=== PATIENT | female | born 1930 | race Caucasian/White ===

== ENCOUNTER 2021-07-10 17:54 | Inpatient (IN) | payer OTHER ==
[2021-07-10 18:43] VITALS: BMI 15.0
[2021-07-10 19:16] LABS: HEMATOCRIT 39.9 % (32.4-45.2); HEMOGLOBIN 13.4 GM/dL (10.7-15.3); LYMPH % 26.6 % (8-40); MCH 30.9 pg (25.7-33.7); MCHC 33.5 g/dl (32.0-36.0); MEAN CELL VOLUME 92.5 fl (80-96); MEAN PLT VOLUME 8.5 fl (7.5-11.1); MONO % 6.3 % (3.8-10.2); NEUT % 65.1 % (42.8-82.8); PLATELET COUNT 240 10^3/uL (134-434); RBC 4.32 M/mm3 (3.60-5.2); RDW 14.4 % (11.6-15.6); WHITE BLOOD COUNT 4.5 K/mm3 (4.0-10.0)
[2021-07-10 20:19] LABS: CHLORIDE 105 mmol/L (98-107); SODIUM 142 mmol/L (136-145)
[2021-07-10 20:22] LABS: CALCIUM 9.4 mg/dL (8.5-10.1)
[2021-07-10 20:23] LABS: ALBUMIN 3.6 g/dl (3.4-5.0); ANION GAP 5 MMOL/L (8-16); CO2 31 mmol/L (21-32); GLUCOSE,RANDOM 143 mg/dL (74-106)
[2021-07-10 20:26] LABS: SGOT/AST 24 U/L (15-37); SGPT/ALT 13 U/L (13-61)
[2021-07-10 20:28] LABS: BILIRUBIN,TOTAL 0.5 mg/dL (0.2-1); BLOOD UREA NITROGEN 32.3 mg/dL (7-18)
[2021-07-10 20:29] LABS: ALK PHOS 60 U/L (45-117)
[2021-07-10] MEDS ORDERED: SODIUM CHLORIDE 500 ML IV STA (20:45)
[2021-07-11] MEDS ORDERED: ACETAMINOPHEN 1000 MG/100 ML BAG IVPB ONE (00:51)
[2021-07-11] MEDS ORDERED: ACETAMINOPHEN INJECTION 100 ML IVPB ONE (00:55)
[2021-07-11] MEDS ORDERED: SODIUM CHLORIDE 1,000 ML IV SCH (02:45)
[2021-07-11 09:14] LABS: BASO % 0.4 % (0-2.0); EOS % 0.2 % (0-4.5); HEMATOCRIT 40.5 % (32.4-45.2); LYMPH % 10.9 % (8-40); MCH 30.1 pg (25.7-33.7); MCHC 32.1 g/dl (32.0-36.0); MEAN CELL VOLUME 93.6 fl (80-96); MEAN PLT VOLUME 8.7 fl (7.5-11.1); MONO % 4.3 % (3.8-10.2); NEUT % 84.2 % (42.8-82.8); PLATELET COUNT 236 10^3/uL (134-434); RBC 4.33 M/mm3 (3.60-5.2); RDW 14.6 % (11.6-15.6); WHITE BLOOD COUNT 8.4 K/mm3 (4.0-10.0)
[2021-07-11 09:48] LABS: ALBUMIN 3.5 g/dl (3.4-5.0)
[2021-07-11 09:49] LABS: CALCIUM 8.7 mg/dL (8.5-10.1)
[2021-07-11 09:52] LABS: BLOOD UREA NITROGEN 26.3 mg/dL (7-18)
[2021-07-11 09:53] LABS: TOT PROT 6.5 g/dl (6.4-8.2)
[2021-07-11 09:54] LABS: CREATININE 0.8 mg/dL (0.55-1.3)
[2021-07-11 09:56] LABS: BILIRUBIN,TOTAL 1.2 mg/dL (0.2-1)
[2021-07-11] MEDS: ACETAMINOPHEN 1000 MG/100 ML BAG IVPB PRN (12:10)
[2021-07-11] MEDS: AMPICILLIN NA/SULBACTAM NA 3 GM in SODIUM CHLORIDE 100 ML IVPB SCH ×2 (13:04→17:19)
[2021-07-11] MEDS ORDERED: AZITHROMYCIN IVPB 500 MG/250 ML BAG IVPB ONE (13:34)
[2021-07-11] MEDS: AZITHROMYCIN IVPB 500 MG/250 ML BAG IVPB SCH (13:55)
[2021-07-11] MEDS ORDERED: AMPICILLIN NA/SULBACTAM NA 3 GM VIAL ONE (16:34)
[2021-07-11] MEDS ORDERED: SODIUM CHLORIDE 100 ML IVPB ONE (16:34)
[2021-07-11] MEDS: HEPARIN NA (PORCINE) 5,000 UNITS/ML 1ML VIAL SQ SCH (21:23)
[2021-07-12] MEDS: AMPICILLIN NA/SULBACTAM NA 3 GM in SODIUM CHLORIDE 100 ML IVPB SCH ×3 (01:22→18:46)
[2021-07-12] MEDS: ACETAMINOPHEN 1000 MG/100 ML BAG IVPB PRN (02:28)
[2021-07-12] MEDS ORDERED: methylPREDNISolone NA SUCC 125 MG/2 ML VIAL ONE ×2 (07:01→07:03)
[2021-07-12] MEDS ORDERED: methylPREDNISolone NA SUCC 125 MG/2 ML VIAL IVPUSH ONE (07:45)
[2021-07-12] MEDS ORDERED: ALBUTEROL SO4 0.083% IH SOL 2.5 MG/3 ML VIAL.NEB. NEB PRN (07:49)
[2021-07-12 08:06] LABS: BASO % 0.2 % (0-2.0); HEMATOCRIT 37.1 % (32.4-45.2); LYMPH % 6.7 % (8-40); MCH 30.2 pg (25.7-33.7); MCHC 32.4 g/dl (32.0-36.0); MEAN CELL VOLUME 93.4 fl (80-96); MEAN PLT VOLUME 9.5 fl (7.5-11.1); MONO % 3.1 % (3.8-10.2); PLATELET COUNT 230 10^3/uL (134-434); RBC 3.98 M/mm3 (3.60-5.2); RDW 14.3 % (11.6-15.6); WHITE BLOOD COUNT 14.5 K/mm3 (4.0-10.0)
[2021-07-12 08:25] LABS: CALCIUM 8.7 mg/dL (8.5-10.1)
[2021-07-12 08:26] LABS: ALBUMIN 3.2 g/dl (3.4-5.0); BLOOD UREA NITROGEN 19.3 mg/dL (7-18)
[2021-07-12 08:29] LABS: CREATININE 0.7 mg/dL (0.55-1.3)
[2021-07-12 08:30] LABS: BILIRUBIN,TOTAL 0.7 mg/dL (0.2-1)
[2021-07-12 08:31] LABS: TOT PROT 5.8 g/dl (6.4-8.2)
[2021-07-12] MEDS: HEPARIN NA (PORCINE) 5,000 UNITS/ML 1ML VIAL SQ SCH ×2 (10:27→22:10)
[2021-07-12] MEDS: PANTOPRAZOLE SODIUM 40 MG VIAL IVPUSH SCH (10:27)
[2021-07-12] MEDS: AZITHROMYCIN IVPB 500 MG/250 ML BAG IVPB SCH (10:28)
[2021-07-12] MEDS: methylPREDNISolone NA SUCC 40 MG/1 ML VIAL IVPUSH SCH ×2 (10:28→18:46)
[2021-07-12] MEDS: SILVER SULFADIAZINE 1% TOP CREAM 50 GM JAR TP SCH (10:37)
[2021-07-12] MEDS ORDERED: AMPICILLIN NA/SULBACTAM NA 3 GM VIAL ONE (11:17)
[2021-07-12] MEDS ORDERED: SODIUM CHLORIDE 100 ML IVPB ONE (11:18)
[2021-07-12] MEDS: AMINO ACIDS 4.25%/D5W 1,000 ML IV SCH (16:37)
[2021-07-13] MEDS ORDERED: AMPICILLIN NA/SULBACTAM NA 3 GM VIAL ONE ×2 (01:32→09:59)
[2021-07-13] MEDS ORDERED: SODIUM CHLORIDE 100 ML IVPB ONE ×2 (01:32→09:59)
[2021-07-13] MEDS: methylPREDNISolone NA SUCC 40 MG/1 ML VIAL IVPUSH SCH ×3 (01:45→21:50)
[2021-07-13] MEDS: AMPICILLIN NA/SULBACTAM NA 3 GM in SODIUM CHLORIDE 100 ML IVPB SCH ×3 (01:45→19:58)
[2021-07-13 07:58] LABS: HEMATOCRIT 38.5 % (32.4-45.2); HEMOGLOBIN 12.7 GM/dL (10.7-15.3); MCH 30.6 pg (25.7-33.7); MCHC 33.1 g/dl (32.0-36.0); MEAN CELL VOLUME 92.6 fl (80-96); MEAN PLT VOLUME 9.3 fl (7.5-11.1); PLATELET COUNT 204 10^3/uL (134-434); RBC 4.15 M/mm3 (3.60-5.2); RDW 14.7 % (11.6-15.6); WHITE BLOOD COUNT 17.1 K/mm3 (4.0-10.0)
[2021-07-13 08:04] LABS: CALCIUM 8.4 mg/dL (8.5-10.1)
[2021-07-13 08:05] LABS: ALBUMIN 2.7 g/dl (3.4-5.0); BLOOD UREA NITROGEN 30.5 mg/dL (7-18)
[2021-07-13 08:08] LABS: CREATININE 0.7 mg/dL (0.55-1.3)
[2021-07-13 08:09] LABS: BILIRUBIN,TOTAL 0.6 mg/dL (0.2-1); TOT PROT 5.9 g/dl (6.4-8.2)
[2021-07-13 09:54] LABS: ANISOCYTOSIS 0; HELMET CELLS 0; HOWELL-JOLLY BODIES 0; MACROCYTOSIS 0; OVALOCYTE 0; PLATELET ESTIMATE NORMAL; ROULEAU 0; SICKELED CELLS 0; TARGET CELLS 0; TEAR DROP CELLS 0; TOXIC GRANULATION 0
[2021-07-13] MEDS: PANTOPRAZOLE SODIUM 40 MG VIAL IVPUSH SCH (10:02)
[2021-07-13] MEDS: HEPARIN NA (PORCINE) 5,000 UNITS/ML 1ML VIAL SQ SCH ×2 (10:02→21:50)
[2021-07-13] MEDS: SILVER SULFADIAZINE 1% TOP CREAM 50 GM JAR TP SCH (10:04)
[2021-07-13] MEDS: AMINO ACIDS 4.25%/D5W 1,000 ML IV SCH (10:10)
[2021-07-13] MEDS: MINERAL OIL ENEMA 133 ML ENEMA RC SCH (10:10)
[2021-07-14] MEDS ORDERED: AMPICILLIN NA/SULBACTAM NA 3 GM VIAL ONE (00:49)
[2021-07-14] MEDS ORDERED: SODIUM CHLORIDE 100 ML IVPB ONE (00:49)
[2021-07-14] MEDS: AMPICILLIN NA/SULBACTAM NA 3 GM in SODIUM CHLORIDE 100 ML IVPB SCH (01:57)
[2021-07-14] MEDS: ACETAMINOPHEN 1000 MG/100 ML BAG IVPB PRN ×2 (03:10→22:21)
[2021-07-14] MEDS ORDERED: PIPERACILLIN/TAZOBACTAM 3.375 GM VIAL IVPB ONE ×3 (05:24→16:44)
[2021-07-14] MEDS ORDERED: DEXTROSE 5%-WATER - 50 ML IVPB ONE ×3 (05:24→16:44)
[2021-07-14] MEDS: PIPERACILLIN/TAZOB 3.375 GM 3.375 GM in DEXTROSE 5%-WATER - 50 ML IVPB SCH ×3 (06:00→17:00)
[2021-07-14 07:48] LABS: HEMOGLOBIN 12.4 GM/dL (10.7-15.3); MCH 31.2 pg (25.7-33.7); MCHC 33.5 g/dl (32.0-36.0); MEAN CELL VOLUME 93.2 fl (80-96); MEAN PLT VOLUME 9.4 fl (7.5-11.1); PLATELET COUNT 179 10^3/uL (134-434); RBC 3.97 M/mm3 (3.60-5.2); RDW 14.9 % (11.6-15.6); WHITE BLOOD COUNT 16.1 K/mm3 (4.0-10.0)
[2021-07-14 08:25] LABS: CALCIUM 8.5 mg/dL (8.5-10.1)
[2021-07-14 08:26] LABS: ALBUMIN 2.7 g/dl (3.4-5.0)
[2021-07-14 08:29] LABS: CREATININE 0.8 mg/dL (0.55-1.3)
[2021-07-14 08:30] LABS: BILIRUBIN,TOTAL 0.7 mg/dL (0.2-1); TOT PROT 5.8 g/dl (6.4-8.2)
[2021-07-14] MEDS: AMINO ACIDS 4.25%/D5W 1,000 ML IV SCH (09:25)
[2021-07-14] MEDS: MINERAL OIL ENEMA 133 ML ENEMA RC SCH (09:26)
[2021-07-14] MEDS: methylPREDNISolone NA SUCC 40 MG/1 ML VIAL IVPUSH SCH ×2 (09:27→22:20)
[2021-07-14] MEDS: PANTOPRAZOLE SODIUM 40 MG VIAL IVPUSH SCH (09:27)
[2021-07-14] MEDS: SILVER SULFADIAZINE 1% TOP CREAM 50 GM JAR TP SCH (09:27)
[2021-07-14] MEDS: HEPARIN NA (PORCINE) 5,000 UNITS/ML 1ML VIAL SQ SCH ×2 (09:28→22:20)
[2021-07-14 12:34] LABS: ANISOCYTOSIS 0; MACROCYTOSIS 0
[2021-07-15] MEDS ORDERED: PIPERACILLIN/TAZOBACTAM 3.375 GM VIAL IVPB ONE ×3 (02:09→17:30)
[2021-07-15] MEDS ORDERED: DEXTROSE 5%-WATER - 50 ML IVPB ONE ×3 (02:09→17:31)
[2021-07-15] MEDS: PIPERACILLIN/TAZOB 3.375 GM 3.375 GM in DEXTROSE 5%-WATER - 50 ML IVPB SCH ×3 (02:29→17:32)
[2021-07-15] MEDS: AMINO ACIDS 4.25%/D5W 1,000 ML IV SCH (07:57)
[2021-07-15] MEDS: PANTOPRAZOLE SODIUM 40 MG VIAL IVPUSH SCH (11:15)
[2021-07-15] MEDS: methylPREDNISolone NA SUCC 40 MG/1 ML VIAL IVPUSH SCH ×2 (11:15→21:40)
[2021-07-15] MEDS: HEPARIN NA (PORCINE) 5,000 UNITS/ML 1ML VIAL SQ SCH ×2 (11:15→21:40)
[2021-07-15] MEDS: SILVER SULFADIAZINE 1% TOP CREAM 50 GM JAR TP SCH (11:15)
[2021-07-15] MEDS: ACETAMINOPHEN 1000 MG/100 ML BAG IVPB PRN (11:16)
[2021-07-15] MEDS: MINERAL OIL ENEMA 133 ML ENEMA RC SCH (11:21)
[2021-07-16] MEDS ORDERED: DEXTROSE 5%-WATER - 50 ML IVPB ONE ×3 (01:21→16:29)
[2021-07-16] MEDS ORDERED: PIPERACILLIN/TAZOBACTAM 3.375 GM VIAL IVPB ONE ×3 (01:21→16:29)
[2021-07-16] MEDS: PIPERACILLIN/TAZOB 3.375 GM 3.375 GM in DEXTROSE 5%-WATER - 50 ML IVPB SCH ×3 (02:01→17:13)
[2021-07-16] MEDS: AMINO ACIDS 4.25%/D5W 1,000 ML IV SCH (07:37)
[2021-07-16] MEDS ORDERED: ALBUTEROL SO4 HFA INHALER IH PRN (09:27)
[2021-07-16] MEDS: PANTOPRAZOLE SODIUM 40 MG VIAL IVPUSH SCH (09:54)
[2021-07-16] MEDS: methylPREDNISolone NA SUCC 40 MG/1 ML VIAL IVPUSH SCH ×2 (09:55→21:22)
[2021-07-16] MEDS: HEPARIN NA (PORCINE) 5,000 UNITS/ML 1ML VIAL SQ SCH ×2 (09:56→21:22)
[2021-07-16] MEDS: SILVER SULFADIAZINE 1% TOP CREAM 50 GM JAR TP SCH (09:58)
[2021-07-16] MEDS: MINERAL OIL ENEMA 133 ML ENEMA RC SCH (09:58)
[2021-07-16] MEDS: ACETAMINOPHEN 1000 MG/100 ML BAG IVPB PRN (10:52)
[2021-07-17] MEDS ORDERED: PIPERACILLIN/TAZOBACTAM 3.375 GM VIAL IVPB ONE ×3 (01:17→16:25)
[2021-07-17] MEDS ORDERED: DEXTROSE 5%-WATER - 50 ML IVPB ONE ×3 (01:18→16:26)
[2021-07-17] MEDS: PIPERACILLIN/TAZOB 3.375 GM 3.375 GM in DEXTROSE 5%-WATER - 50 ML IVPB SCH ×3 (01:19→17:32)
[2021-07-17] MEDS: AMINO ACIDS 4.25%/D5W 1,000 ML IV SCH (09:06)
[2021-07-17] MEDS: HEPARIN NA (PORCINE) 5,000 UNITS/ML 1ML VIAL SQ SCH ×2 (10:17→21:11)
[2021-07-17] MEDS: methylPREDNISolone NA SUCC 40 MG/1 ML VIAL IVPUSH SCH ×2 (10:18→21:11)
[2021-07-17] MEDS: PANTOPRAZOLE SODIUM 40 MG VIAL IVPUSH SCH (10:18)
[2021-07-17] MEDS: SILVER SULFADIAZINE 1% TOP CREAM 50 GM JAR TP SCH (10:31)
[2021-07-17] MEDS ORDERED: MINERAL OIL ENEMA 133 ML ENEMA RC PRN (12:04)
[2021-07-17 12:23] LABS: HEMATOCRIT 38.8 % (32.4-45.2); HEMOGLOBIN 13.2 GM/dL (10.7-15.3); MCH 30.7 pg (25.7-33.7); MCHC 34.1 g/dl (32.0-36.0); MEAN CELL VOLUME 90.1 fl (80-96); MEAN PLT VOLUME 8.9 fl (7.5-11.1); PLATELET COUNT 160 10^3/uL (134-434); RBC 4.31 M/mm3 (3.60-5.2); RDW 14.1 % (11.6-15.6); WHITE BLOOD COUNT 14.2 K/mm3 (4.0-10.0)
[2021-07-17 12:38] LABS: CALCIUM 8.5 mg/dL (8.5-10.1)
[2021-07-17 12:39] LABS: ALBUMIN 2.5 g/dl (3.4-5.0); BLOOD UREA NITROGEN 31.1 mg/dL (7-18)
[2021-07-17 12:42] LABS: CREATININE 0.6 mg/dL (0.55-1.3)
[2021-07-17 12:44] LABS: TOT PROT 5.5 g/dl (6.4-8.2)
[2021-07-17] MEDS: MINERAL OIL ENEMA 133 ML ENEMA RC SCH (13:16)
[2021-07-17] MEDS: ACETAMINOPHEN 1000 MG/100 ML BAG IVPB PRN (13:18)
[2021-07-17 14:33] LABS: ANISOCYTOSIS 0; MACROCYTOSIS 0
[2021-07-18] MEDS ORDERED: DEXTROSE 5%-WATER - 50 ML IVPB ONE ×3 (00:26→16:50)
[2021-07-18] MEDS ORDERED: PIPERACILLIN/TAZOBACTAM 3.375 GM VIAL IVPB ONE ×3 (00:26→16:50)
[2021-07-18] MEDS: PIPERACILLIN/TAZOB 3.375 GM 3.375 GM in DEXTROSE 5%-WATER - 50 ML IVPB SCH ×3 (01:44→17:21)
[2021-07-18] MEDS: AMINO ACIDS 4.25%/D5W 1,000 ML IV SCH (09:09)
[2021-07-18] MEDS: methylPREDNISolone NA SUCC 40 MG/1 ML VIAL IVPUSH SCH ×2 (09:09→22:29)
[2021-07-18] MEDS: PANTOPRAZOLE SODIUM 40 MG VIAL IVPUSH SCH (09:10)
[2021-07-18] MEDS: HEPARIN NA (PORCINE) 5,000 UNITS/ML 1ML VIAL SQ SCH ×2 (09:10→22:29)
[2021-07-18] MEDS: SILVER SULFADIAZINE 1% TOP CREAM 50 GM JAR TP SCH (09:10)
[2021-07-18] MEDS: POTASSIUM CHLORIDE ORAL LIQUID 20 MEQ/15 ML PO SCH (12:13)
[2021-07-19] MEDS ORDERED: DEXTROSE 5%-WATER - 50 ML IVPB ONE ×3 (01:22→16:15)
[2021-07-19] MEDS ORDERED: PIPERACILLIN/TAZOBACTAM 3.375 GM VIAL IVPB ONE ×3 (01:22→16:15)
[2021-07-19] MEDS: PIPERACILLIN/TAZOB 3.375 GM 3.375 GM in DEXTROSE 5%-WATER - 50 ML IVPB SCH ×3 (01:39→17:55)
[2021-07-19] MEDS: PANTOPRAZOLE SODIUM 40 MG VIAL IVPUSH SCH (09:35)
[2021-07-19] MEDS: AMINO ACIDS 4.25%/D5W 1,000 ML IV SCH (09:35)
[2021-07-19] MEDS: methylPREDNISolone NA SUCC 40 MG/1 ML VIAL IVPUSH SCH ×2 (09:36→21:05)
[2021-07-19] MEDS: HEPARIN NA (PORCINE) 5,000 UNITS/ML 1ML VIAL SQ SCH ×2 (09:36→21:05)
[2021-07-19] MEDS: SILVER SULFADIAZINE 1% TOP CREAM 50 GM JAR TP SCH (09:46)
[2021-07-19] MEDS ORDERED: POTASSIUM CHLORIDE 20 MEQ PREMIX IVPB 100 ML IVPB ONE (10:36)
[2021-07-19] MEDS: POTASSIUM CHLORIDE ORAL LIQUID 20 MEQ/15 ML PO SCH (10:52)
[2021-07-19] MEDS: KCL 10 MEQ IVPB 10 MEQ/100 ML INFUS.BAG IVPB SCH ×2 (10:58→13:00)
[2021-07-19] MEDS: ACETAMINOPHEN 1000 MG/100 ML BAG IVPB PRN (21:34)
[2021-07-20] MEDS ORDERED: PIPERACILLIN/TAZOBACTAM 3.375 GM VIAL IVPB ONE ×2 (00:54→09:55)
[2021-07-20] MEDS ORDERED: DEXTROSE 5%-WATER - 50 ML IVPB ONE ×2 (00:54→09:55)
[2021-07-20] MEDS: PIPERACILLIN/TAZOB 3.375 GM 3.375 GM in DEXTROSE 5%-WATER - 50 ML IVPB SCH ×2 (01:08→10:13)
[2021-07-20] MEDS: ACETAMINOPHEN 1000 MG/100 ML BAG IVPB PRN (07:01)
[2021-07-20] MEDS ORDERED: SODIUM CHLORIDE 500 ML IV SCH (08:45)
[2021-07-20] MEDS: PANTOPRAZOLE SODIUM 40 MG VIAL IVPUSH SCH (10:12)
[2021-07-20] MEDS: HEPARIN NA (PORCINE) 5,000 UNITS/ML 1ML VIAL SQ SCH (10:12)
[2021-07-20] MEDS: methylPREDNISolone NA SUCC 40 MG/1 ML VIAL IVPUSH SCH (10:12)
[2021-07-20] MEDS: AMINO ACIDS 4.25%/D5W 1,000 ML IV SCH (10:13)
[2021-07-20] MEDS: SILVER SULFADIAZINE 1% TOP CREAM 50 GM JAR TP SCH (12:55)
[2021-07-20 13:57] VITALS: BP 80/40; PULSE 100; TEMP 97.4
== END 2021-07-20 12:10 | disposition expired | DRG 177 ==
LOC: EDBD 17:54 → JER 17:54 → JERBED 07-11 00:13 → J4S 07-11 15:43
PROVIDERS: ADMIT Specialist; ATTEND Specialist
DX: J69.0 Pneumonitis due to inhalation of food and vomit (principal); U07.1 COVID-19; J96.01 Acute respiratory failure with hypoxia; R64 Cachexia; Z68.1 Body mass index [BMI] 19.9 or less, adult; G20 Parkinson's disease; F03.90 Unspecified dementia, unspecified severity, without behavioral disturbance, psychotic disturbance, mood disturbance, and anxiety; I46.9 Cardiac arrest, cause unspecified
CPT/HCPCS: 36415; 70491-TC; 71045-TC-FY; 71260-TC; 74018-TC-FY; 74177-TC; 80053; 82728; 84484; 85025; 85379; 86140; 86769; 93005; 93010; 94660; 99285-25; C9803; J1644; U0003; U0005